=== PATIENT | male | born 1995 | race Caucasian/White ===

== ENCOUNTER 2018-06-04 23:21 | Emergency (ER) | payer OTHER ==
[2018-06-04] MEDS: LIDOCAINE 2%/EPI MPF (SDV) 20 ML VIAL INJ (23:47)
== END 2018-06-05 00:20 | disposition home or self-care (01) ==
LOC: E/R 23:21
DX: S01.511A Laceration without foreign body of lip, initial encounter (principal); V89.2XXA Person injured in unspecified motor-vehicle accident, traffic, initial encounter
CPT/HCPCS: 12013; 99282-25